=== PATIENT | female | born 1940 | race Caucasian/White ===

== ENCOUNTER 2019-08-27 01:33 | Day surgery (SDC) | payer MEDICARE, BC, SELFPAY ==
[2019-07-29 08:35] VITALS: BMI 27.8
--- NOTE | 2019-08-27 07:23 | WPDHPUPDATE1 ---
History and Physical Update Update Date/Time: 08/27/19 07:23 History and Physical has been reviewed, including an updated exam of the patient. There are NO changes in the patient's condition. Risks, benefits, and alternatives have been discussed and questions answered. Patient agrees to proceed with procedure.
[2019-08-27 10:15] VITALS: PULSE 91; TEMP 36.2; O2SAT 100
[2019-08-27] MEDS: LACTATED RINGERS 1,000 ML 30 ML IV CONT (10:15)
--- NOTE | 2019-08-27 10:15 | WPDANESEPPF ---
Anes - Initial Pre Proc Eval Procedure: Operation Date: 08/27/19 11:15 Proposed Procedures p Cystoscopy, Bladder Biopsy with Steroid Injection and Botox Injection - Yon Jones MD Date/Time: 08/27/19 10:15 Surgeon: Yon Jones MD Pre Op Diagnosis: Hunters ulcer, overactive bladder Patient Data Age: 78 Gender: F Height: 5 ft 7.5 in Weight: 81.8 kg Allergies Allergy/AdvReac Type Severity Reaction Status Date / Time azithromycin Allergy Severe HYPERTENSIO Verified 08/16/19 09:04 N levofloxacin Allergy Severe extremely Verified 08/16/19 09:04 high blood pressure which sent her to ER methylprednisolone Allergy Severe extremely Verified 08/16/19 09:04 high blood pressure which sends her to ER prednisone Allergy Severe HYPERTENSIO Verified 08/16/19 09:04 N atorvastatin Allergy Intermediate effected Unverified 08/16/19 09:04 eye sight muscle joints amlodipine Allergy Mild cramps Verified 08/16/19 09:04 doxycycline Allergy Unknown Rash Verified 08/16/19 09:04 nitrofurantoin Allergy Unknown Cough Verified 08/16/19 09:04 pregabalin Allergy Unknown Unknown Verified 08/16/19 09:04 Moyckfw-Jro-Ghi Reductase Allergy Unknown unknown Verified 08/16/19 09:04 Inhibitor sulfamethizole Allergy Unknown Unknown Verified 08/16/19 09:04 menthol AdvReac Unknown rash Verified 08/16/19 09:04 selenium sulfide AdvReac Unknown rash Verified 08/16/19 09:04 Home Medications Medication Instructions Recorded Confirmed Type clonidine 0.2 mg/24 hr weekly 1 patch TRANSDERM WEEKLY #1 each 07/01/19 08/16/19 Rx transdermal patch irbesartan 150 mg tablet 150 mg PO DAILY #1 tablet 07/01/19 08/16/19 Rx isosorbide mononitrate 30 mg 30 mg PO DAILY #1 tablet 07/01/19 08/16/19 Rx tablet,extended release 24 hr lorazepam 0.5 mg PO TID PRN 07/29/19 08/16/19 History hydrocodone 10 mg-chlorpheniramine 5 ml PO Q12H PRN 30 Days #337 ml 08/02/19 08/16/19 Rx 8 mg/5 mL oral susp extend.rel 12hr Patient hx anesthesia problems: none Family hx anesthesia problems: none PMFSH Past Medical History Medical History COPD (chronic obstructive pulmonary disease) Hypertension CELI (obstructive sleep apnea) Family History Family History Other Family history of premature coronary heart disease Social History Social History Smoking status: Never smoker Second hand tobacco smoke exposure: No Alcohol intake: never Anes - Eval Final PreProcedure Day of Procedure 08/27/19 10:15 Patient weight: overweight Heart: regular rate and rhythm Lungs: decreased breath sounds Airway: Mallampati scale class II Neurological: alert and oriented Last oral intake: >/= 8 hours ASA classification: III Emergent: no Anesthetic plan: proceed Anesthesia type and monitoring: general GIVS and standard monitoring Informed Consent: The patient's anesthetic plan and its attendant risks and benefits were discussed with the patient/family/POA. Questions were solicited and answers provided to the satisfaction of the patient/family/POA.
--- NOTE | 2019-08-27 11:08 | WPDHPUPDATE1 ---
History and Physical Update Update Date/Time: 08/27/19 11:08 History and Physical has been reviewed, including an updated exam of the patient. There are NO changes in the patient's condition. Risks, benefits, and alternatives have been discussed and questions answered. Patient agrees to proceed with procedure. Cystoscopy with bladder biopsy and injection of steroids as well as injection of Botox
[2019-08-27] MEDS: ERTAPENEM 1 GM/NS 50 ML 1 GM/50 ML BAG IVPB (11:13)
[2019-08-27] MEDS: LIDOCAINE HCL 2% GEL UROJET 10 ML PKG MUCOUS MEM (11:32)
[2019-08-27] MEDS: BOTULINUM TOXIN TYPE A (*SPLP) 100 UNITS VIAL 200 UNITS IM (11:33)
[2019-08-27] MEDS: BOTULINUM TOXIN TYPE A (*SPLP) 100 UNITS VIAL IM (11:34)
[2019-08-27] MEDS: TRIAMCINOLONE ACET INJ 40 MG/ML VIAL 200 MG IM (11:37)
[2019-08-27 11:44] VITALS: BP 138/81; PULSE 89; RESP 16; O2SAT 95
--- NOTE | 2019-08-27 11:55 | PM.PROC ---
Procedure Note - Detailed Date of procedure: 08/27/19 Pre-op diagnosis: Hunters ulcer, overactive bladder Hunner's ulcer Overactive bladder Post-op diagnosis: same Procedure performed: Cystoscopy with bladder biopsy and injection of steroid Injection of Botox 300 units. Description of procedure: After anesthesia was induced the patient was correctly identified and informed consent was obtained. They are placed in the dorsal lithotomy position. There prepped and draped in a sterile fashion. A time-out performed. I performed cystoscopy. There were areas of Hunner's ulceration inside the bladder. There were 3 areas in total. This was biopsied in generously fulgurated. I then injected Kenalog at a dose of 40 milligrams/mL. I injected 5 cc total. There was minimal bleeding from the injection sites. I then mixed 300 units of Botox in 30 cc preservative-free saline. I injected it throughout the bladder in the sub urothelial and muscular layer. Be increased from 200-300 units per patient request. The bladder was examined under low insufflation pressures and there was no active bleeding. The bladder was drained. The awakened and transferred to the PACU in stable condition. Implants: None Anesthesia: MAC Surgeon: Yon Jones MD Drains: No Packing: No Pathology: yes (Bladder biopsy) Complications: No immediate complications Condition: stable Disposition: PACU
[2019-08-27 12:14] VITALS: BP 130/91; PULSE 80; RESP 16; O2SAT 97
[2019-08-27 12:44] VITALS: BP 135/79; PULSE 86; RESP 14
== END 2019-08-27 12:53 | disposition home or self-care (01) ==
PROVIDERS: PCP Internal Medicine; Visit Provider Urology
PROC: 3E0K8GC Introduction of Other Therapeutic Substance into Genitourinary Tract, Via Natural or Artificial Opening Endoscopic (ICD-10-PCS; CPT 52287; principal; 2019-08-27 11:15)
DX: N30.10 Interstitial cystitis (chronic) without hematuria (principal); N32.81 Overactive bladder; I10 Essential (primary) hypertension; J44.9 Chronic obstructive pulmonary disease, unspecified; G47.33 Obstructive sleep apnea (adult) (pediatric); Z79.82 Long term (current) use of aspirin
CPT/HCPCS: 52204; 52283; 52287; 88305; A9270; J0131; J0585; J1335; J2704; J3010; J3301; J7120

== ENCOUNTER 2020-04-22 00:39 | Outpatient (CLI) | payer MEDICARE, BC, SELFPAY ==
[2020-04-22 17:48] LABS: SARS-CoV-2 RNA PCR Negative
== END 2020-04-22 00:40 | disposition home or self-care (01) ==
LOC: ANHCOVIDDT 00:40
PROVIDERS: PCP Internal Medicine; Visit Provider Orthopaedic Surgery
DX: Z01.812 Encounter for preprocedural laboratory examination (principal); Z20.828 Contact with and (suspected) exposure to other viral communicable diseases; D89.9 Disorder involving the immune mechanism, unspecified
CPT/HCPCS: 87635; C9803; U0003

== ENCOUNTER 2020-04-25 02:23 | Day surgery (SDC) | payer MEDICARE, BC, SELFPAY ==
[2020-04-17 14:18] VITALS: BMI 28.0
[2020-04-25] VITALS (9 sets, daily range): BP systolic 113–172; BP diastolic 49–77; PULSE 66–88; RESP 12–20; TEMP 36.3–36.7; O2SAT 95–99
[2020-04-25] MEDS: CELECOXIB 200 MG CAPSULE PO (06:53)
[2020-04-25] MEDS: ACETAMINOPHEN 500 MG TABLET 1000 MG PO (06:53)
[2020-04-25] MEDS: LACTATED RINGERS 1,000 ML 30 ML IV CONT ×2 (06:59→09:15)
--- NOTE | 2020-04-25 07:07 | WPDANESEPPF ---
Anes - Initial Pre Proc Eval Procedure: Operation Date: 04/25/20 07:30 Proposed Procedures p Right Rotator Cuff Repair With Distal Clavicle Excision - Luis Khan MD Date/Time: 04/25/20 07:07 Surgeon: Luis Khan MD Pre Op Diagnosis: Right Rotator Cuff Tear Patient Data Age: 79 Gender: F Height: 5 ft 7.5 in Weight: 82.55 kg Allergies Allergy/AdvReac Type Severity Reaction Status Date / Time azithromycin Allergy Severe HYPERTENSIO Verified 04/25/20 06:28 N levofloxacin Allergy Severe extremely Verified 04/25/20 06:28 high blood pressure which sent her to ER methylprednisolone Allergy Severe extremely Verified 04/25/20 06:28 high blood pressure which sends her to ER prednisone Allergy Severe HYPERTENSIO Verified 04/25/20 06:28 N atorvastatin Allergy Intermediate effected Verified 04/25/20 06:28 eye sight muscle joints amlodipine Allergy Mild cramps Verified 04/25/20 06:28 doxycycline Allergy Unknown Rash Verified 04/25/20 06:28 nitrofurantoin Allergy Unknown Cough Verified 04/25/20 06:28 pregabalin Allergy Unknown Unknown Verified 04/25/20 06:28 Wqzyokf-Cxb-Pvv Reductase Allergy Unknown LEG CRAMPS Verified 04/25/20 06:28 Inhibitor menthol AdvReac Unknown rash Verified 04/25/20 06:28 selenium sulfide AdvReac Unknown rash Verified 04/25/20 06:28 Home Medications Medication Instructions Recorded Confirmed Type clonidine 0.2 mg/24 hr weekly 1 patch TRANSDERM WEEKLY 90 Days 02/01/20 04/25/20 Rx transdermal patch #13 each irbesartan 150 mg tablet 150 mg PO DAILY 90 Days #90 tablet 02/01/20 04/25/20 Rx phenazopyridine 200 mg tablet 200 mg PO PRN PRN tablet 02/01/20 04/25/20 History chlorhexidine gluconate 4 % 1 applic TOPICAL ONCE #237 ml 02/28/20 04/25/20 Rx topical liquid isosorbide mononitrate 30 mg 30 mg PO DAILY #90 tablet 03/22/20 04/25/20 Rx tablet,extended release 24 hr lorazepam 0.5 mg tablet 0.25 mg PO BID 30 Days #30 tablet 04/15/20 04/25/20 Rx lactulose 10 gram/15 mL (15 mL) 30 ml PO PRN PRN #600 ml 04/18/20 04/25/20 Rx oral solution cyclobenzaprine 10 mg tablet 10 mg PO DAILY #90 tablet 04/19/20 04/25/20 Rx sulfamethoxazole 800 1 tablet PO DAILY 90 Days #90 04/19/20 04/25/20 Rx mg-trimethoprim 160 mg tablet tablet tramadol 50 mg tablet 50 mg PO Q6H PRN 30 Days #90 tablet 04/19/20 04/25/20 Rx Patient hx anesthesia problems: none Family hx anesthesia problems: none PMFSH Family History Family History Other Family history of premature coronary heart disease Social History Social History Smoking packs per day: 1 Smoking cigarettes per day: 20.0 Years smoked: 40 Smoking pack-years: 40.00 Smoking status: Former smoker Tobacco type: cigarettes Second hand tobacco smoke exposure: No Smoking end date: 07/28/98 Alcohol intake: never Living arrangements: with family Spiritual care concerns: No Anes - Eval Final PreProcedure Day of Procedure 04/25/20 07:07 Patient weight: overweight Heart: regular rate and rhythm Lungs: clear to auscultation Airway: Mallampati scale class II Neurological: alert and oriented Last oral intake: >/= 8 hours ASA classification: IV Emergent: no Anesthetic plan: proceed Anesthesia type and monitoring: general ETT and standard monitoring Informed Consent: The patient's anesthetic plan and its attendant risks and benefits were discussed with the patient/family/POA. Questions were solicited and answers provided to the satisfaction of the patient/family/POA.
--- NOTE | 2020-04-25 07:25 | WPDHPUPDATE1 ---
History and Physical Update Update Date/Time: 04/25/20 07:25 History and Physical has been reviewed, including an updated exam of the patient. There are NO changes in the patient's condition. Risks, benefits, and alternatives have been discussed and questions answered. Patient agrees to proceed with procedure.
[2020-04-25] MEDS: ceFAZolin 2 GM/D5W 50 ML 2 GM/50 ML BAG IVPB (07:33)
--- NOTE | 2020-04-25 09:00 | PM.PROC ---
Procedure Note - Detailed Date of procedure: 04/25/20 Pre-op diagnosis: Right Rotator Cuff Tear Post-op diagnosis: same Procedure performed: REPAIR OF RIGHT ROTATOR CUFF WITH DCE Description of procedure: THE PATIENT WAS TAKEN TO THE OPERATING ROOM AND THEN INTUBATED AND PLACED IN THE BEACH CHAIR POSITION. THE RIGHT UPPER EXTREMITY WAS PREPPED AND DRAPED IN THE NORMAL STERILE FASHION. AN INCISION WAS MADE IN BETWEEN THE SAVANNA-LATERAL ACROMION AND THE AC JOINT. THE FASCIA WAS IDENTIFIED. THE AC JOINT WAS PALPATED. AN INCISION WAS MADE OVER THE CAPSULE OF THE AC JOINT. THE AC JOINT WAS EXPOSED. THERE WAS SEVERE DJD. A DISTAL CLAVICLE EXCISION WAS PREFORMED REMOVING APPROXIMATELY 1 CM OF BONE FROM THE DISTAL CLAVICLE. AND AN OSTEOPHYTE WAS REMOVED FROM THE UNDERSURFACE OF THE CLAVICLE. THE WOUND WAS WASHED AND THE CAPSULE WAS CLOSED WITH 0 VICRYL SUTURE. NEXT A MINI OPEN INCISION WAS MADE THROUGH THE DELTOID MUSCLE EXPOSING THE SUBACROMIAL SPACE. A LIMITED ACROMIOPLASTY WAS PREFORMED. THE ROTATOR CUFF WAS IDENTIFIED. THERE WAS A FULL THICKNESS TEAR TO THE CUFF. THE GREATER TUBEROSITY WAS DEBRIDED TO BLEEDING BONE. 1 ATHREX 5.5 SUTURE ANCHOR WAS PLACED IN TO GOOD BONE AND HAD VERY GOOD BITE. BAHMAN-KURT TYPE REPAIRS WERE DONE TO THE ROTATOR CUFF AND THERE WAS GOOD APPROXIMATION TO THE GREATER TUBEROSITY. THE REPAIR WAS EXCELLENT. THERE WAS NO IMPINGEMENT ON THE REPAIR FROM THE ACROMION WITH RANGE OF MOTION. THE WOUND WAS IRRIGATED WITH COPIOUS AMOUNTS OF ANTIBIOTIC SOLUTION. THE DELTOID MUSCLE WAS REPAIRED WITH #2 FIBER WIRE AND 0 VICRYL SUTURE. THE SUBCUTANEOUS LAYER WAS APPROXIMATED WITH 2-0 VICRYL. THE SKIN WAS APPROXIMATED WITH 3-0 QUIL AND DERMABOND. STERILE DRESSING WAS APPLIED. PATIENT WAS EXTUBATED. Surgeon: Luis Khan MD
[2020-04-25] MEDS: ONDANSETRON INJ 4 MG/2 ML VIAL IV PUSH (09:27)
[2020-04-25] MEDS: fentaNYL CITRATE INJ (*CRX) 100 MCG/2 ML VIAL 25 MCG IV PUSH ×4 (09:32→10:02)
--- NOTE | 2020-04-25 09:39 | SUR.PHASEI ---
0915; PT MOANING AND C/O PAIN AND NAUSEA. PT HAS NOTED PAIN PATCH TO LT CHEST. PT HAS 2 TEGADERMS TO SKIN TEARS ON RT FOREARM. HOB ELEVATED 30 DEGREES. 0925; PT REMOVED O2 MASK FOR NAUSEA. NASAL CANNULA APPLIED.
--- NOTE | 2020-04-25 09:49 | SUR.PHASEI ---
0945; MONITOR SHOWS NSR WITH FREQUENT PAC'S. PT C/O PAIN AT 03/06. DR BLANC NOTIFIED.
--- NOTE | 2020-04-25 10:02 | SUR.PHASEI ---
0952; DR BLANC AT BEDSIDE. ORDERED DILAUDID PRN. LOOKING AT MONITOR. NSR, LESS PAC'S AT THIS TIME. PT STILL C/O NAUSEA.
--- NOTE | 2020-04-25 10:29 | SUR.PHASEI ---
DR CMKEON HERE, DISCUSSED PT'S SKIN TEARS, AND CHRONIC PAIN.
--- NOTE | 2020-04-25 10:34 | SUR.PHASEI ---
PT RESTING QUIETLY. STATES SHE IS READY TO SIT IN RECLINER AND HAVE A DRINK
[2020-04-25] MEDS: oxyCODONE HCL (*CRX) 2.5 MG TAB IR PO (11:24)
== END 2020-04-25 12:10 | disposition home or self-care (01) ==
PROVIDERS: PCP Internal Medicine; Visit Provider Orthopaedic Surgery
PROC: (CPT 23420; principal; 2020-04-25 07:30)
DX: M75.101 Unspecified rotator cuff tear or rupture of right shoulder, not specified as traumatic (principal); Z87.891 Personal history of nicotine dependence; M19.011 Primary osteoarthritis, right shoulder; J44.9 Chronic obstructive pulmonary disease, unspecified; I10 Essential (primary) hypertension; G47.33 Obstructive sleep apnea (adult) (pediatric)
CPT/HCPCS: 23420; 23120; A9270; C1713; J0690; J1100; J2250; J2370; J2405; J2704; J2710; J3010; J7120

== ENCOUNTER 2020-06-26 13:15 | Outpatient (CLI) | payer MEDICARE, BC, SELFPAY | END 2020-06-26 13:16 | disposition home or self-care (01) | PROVIDERS: PCP Internal Medicine; Visit Provider Urology | DX: Z01.818 Encounter for other preprocedural examination (principal); N32.81 Overactive bladder | CPT/HCPCS: 87077; 87086; 87088; 87186 ==

== ENCOUNTER 2020-06-30 02:12 | Outpatient (CLI) | payer MEDICARE, BC, SELFPAY ==
[2020-06-30 19:10] LABS: SARS-CoV-2 RNA PCR Negative
== END 2020-06-30 02:13 | disposition home or self-care (01) ==
LOC: ANHCOVIDDT 02:12
PROVIDERS: PCP Internal Medicine; Visit Provider Urology
DX: Z01.812 Encounter for preprocedural laboratory examination (principal); Z20.828 Contact with and (suspected) exposure to other viral communicable diseases
CPT/HCPCS: 87635; C9803; U0003

== ENCOUNTER 2020-07-03 00:43 | Day surgery (SDC) | payer MEDICARE, BC, SELFPAY ==
[2020-06-21 13:21] VITALS: BMI 28.6
--- NOTE | 2020-06-23 09:47 | PM.IMHP ---
H&P: HPI History of Present Illness Date/Time: 06/23/20 09:47 Chief complaint: Over active Bladder Narrative: Estelle Joseph is a 79 year old female Hunners ulcers and OAB Review of Systems Review of Systems: All systems reviewed & are unremarkable except as noted in HPI and below PMFSH Past Medical History Medical History (Updated 06/23/20 @ 09:50 by Yon Jones MD) COPD (chronic obstructive pulmonary disease) Hypertension CELI (obstructive sleep apnea) Tear of right supraspinatus tendon Family History Family History Other Family history of premature coronary heart disease Social History Social History Smoking packs per day: 1 Smoking cigarettes per day: 20.0 Years smoked: 40 Smoking pack-years: 40.00 Smoking status: Former smoker Tobacco type: cigarettes Second hand tobacco smoke exposure: No Smoking end date: 07/28/98 Alcohol intake: never Spiritual care concerns: No Meds Home Medications and Allergies Home Medications Medication Instructions Recorded Confirmed Type clonidine 0.2 mg/24 hr weekly 1 patch TRANSDERM WEEKLY 90 Days 02/01/20 06/21/20 Rx transdermal patch #13 each irbesartan 150 mg tablet 150 mg PO DAILY 90 Days #90 tablet 02/01/20 06/21/20 Rx isosorbide mononitrate 30 mg 30 mg PO DAILY #90 tablet 03/22/20 06/21/20 Rx tablet,extended release 24 hr lorazepam 0.5 mg tablet 0.25 mg PO BID 30 Days #30 tablet 04/15/20 06/21/20 Rx cyclobenzaprine 10 mg tablet 10 mg PO DAILY #90 tablet 04/19/20 06/21/20 Rx tramadol 50 mg tablet 50 mg PO Q6H PRN 30 Days #90 tablet 04/19/20 06/21/20 Rx elderberry fruit [Elderberry] 400 mg PO QAM 06/21/20 06/21/20 History melatonin 10 mg PO HS PRN 06/21/20 06/21/20 History turmeric 400 mg PO QAM 06/21/20 06/21/20 History Allergies Allergy/AdvReac Type Severity Reaction Status Date / Time azithromycin Allergy Severe HYPERTENSIO Verified 06/21/20 13:12 N levofloxacin Allergy Severe extremely Verified 06/21/20 13:12 high blood pressure which sent her to ER methylprednisolone Allergy Severe extremely Verified 06/21/20 13:12 high blood pressure which sends her to ER prednisone Allergy Severe HYPERTENSIO Verified 06/21/20 13:12 N atorvastatin Allergy Intermediate effected Verified 06/21/20 13:12 eye sight muscle joints amlodipine Allergy Mild cramps Verified 06/21/20 13:12 doxycycline Allergy Unknown Rash Verified 06/21/20 13:12 nitrofurantoin Allergy Unknown Cough Verified 06/21/20 13:12 pregabalin Allergy Unknown Unknown Verified 06/21/20 13:12 Hofvyzu-Yjl-Vgq Reductase Allergy Unknown LEG CRAMPS Verified 06/21/20 13:12 Inhibitor menthol AdvReac Unknown rash Verified 06/21/20 13:12 selenium sulfide AdvReac Unknown rash Verified 06/21/20 13:12 Exam Const: General: cooperative HENMT: Head: normal to inspection Resp: Effort & Inspection: normal respiratory effort and able to speak in complete sentences GI: Inspection: normal to inspection Back/Spine/Pelvis: Back: no CVA tenderness Skin: General skin exam: normal color Assessment and Plan Assessment and plan (1) 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
--- NOTE | 2020-07-03 07:15 | WPDHPUPDATE1 ---
History and Physical Update Update Date/Time: 07/03/20 07:15 History and Physical has been reviewed, including an updated exam of the patient. There are NO changes in the patient's condition. Risks, benefits, and alternatives have been discussed and questions answered. Patient agrees to proceed with procedure.
[2020-07-03 10:52] VITALS: BP 147/82; PULSE 82; RESP 20; TEMP 36.7; O2SAT 96
[2020-07-03] MEDS: LACTATED RINGERS 1,000 ML 30 ML IV CONT (11:25)
--- NOTE | 2020-07-03 11:55 | WPDANESEPPF ---
Anes - Initial Pre Proc Eval Procedure: Operation Date: 07/03/20 13:00 Proposed Procedures p Cystoscopy, Botox And Steroid Injection - Yon Jones MD Date/Time: 07/03/20 11:55 Surgeon: Yon Jones MD Pre Op Diagnosis: Over active Bladder Patient Data Age: 79 Gender: F Height: 5 ft 7 in Weight: 84 kg Last Vital Signs Temp 98.1 F 07/03/20 10:52 Pulse 82 07/03/20 10:52 Resp 20 07/03/20 10:52 BP 147/82 H 07/03/20 10:52 Pulse Ox 96 07/03/20 10:52 Allergies Allergy/AdvReac Type Severity Reaction Status Date / Time azithromycin Allergy Severe HYPERTENSIO Verified 06/21/20 13:12 N levofloxacin Allergy Severe extremely Verified 06/21/20 13:12 high blood pressure which sent her to ER methylprednisolone Allergy Severe extremely Verified 06/21/20 13:12 high blood pressure which sends her to ER prednisone Allergy Severe HYPERTENSIO Verified 06/21/20 13:12 N atorvastatin Allergy Intermediate effected Verified 06/21/20 13:12 eye sight muscle joints amlodipine Allergy Mild cramps Verified 06/21/20 13:12 doxycycline Allergy Mild Rash Verified 07/03/20 11:00 nitrofurantoin Allergy Mild Cough Verified 07/03/20 11:00 pregabalin Allergy Mild Unknown Verified 07/03/20 11:00 Myhypxq-Pyg-Aet Reductase Allergy Mild LEG CRAMPS Verified 07/03/20 11:00 Inhibitor selenium sulfide AdvReac Mild rash Verified 07/03/20 11:00 Home Medications Medication Instructions Recorded Confirmed Type clonidine 0.2 mg/24 hr weekly 1 patch TRANSDERM WEEKLY 90 Days 02/01/20 07/03/20 Rx transdermal patch #13 each irbesartan 150 mg tablet 150 mg PO DAILY 90 Days #90 tablet 02/01/20 07/03/20 Rx isosorbide mononitrate 30 mg 30 mg PO DAILY #90 tablet 03/22/20 07/03/20 Rx tablet,extended release 24 hr lorazepam 0.5 mg tablet 0.25 mg PO BID 30 Days #30 tablet 04/15/20 07/03/20 Rx cyclobenzaprine 10 mg tablet 10 mg PO DAILY #90 tablet 04/19/20 07/03/20 Rx tramadol 50 mg tablet 50 mg PO Q6H PRN 30 Days #90 tablet 04/19/20 07/03/20 Rx elderberry fruit [Elderberry] 400 mg PO QAM 06/21/20 07/03/20 History melatonin 10 mg PO HS PRN 06/21/20 07/03/20 History turmeric 400 mg PO QAM 06/21/20 07/03/20 History Patient hx anesthesia problems: none Family hx anesthesia problems: none PMFSH Past Medical History Medical History (Updated 06/23/20 @ 09:50 by Yon Jones MD) COPD (chronic obstructive pulmonary disease) Hypertension CELI (obstructive sleep apnea) Tear of right supraspinatus tendon Family History Family History Other Family history of premature coronary heart disease Social History Social History Smoking packs per day: 1 Smoking cigarettes per day: 20.0 Years smoked: 40 Smoking pack-years: 40.00 Smoking status: Former smoker Tobacco type: cigarettes Second hand tobacco smoke exposure: No Smoking end date: 07/28/98 Alcohol intake: never Living arrangements: with family Spiritual care concerns: No Anes - Eval Final PreProcedure Day of Procedure 07/03/20 11:55 Patient weight: overweight Heart: regular rate and rhythm Lungs: clear to auscultation Airway: Mallampati scale class III Neurological: alert and oriented Last oral intake: >/= 8 hours ASA classification: III Emergent: no Anesthetic plan: proceed Anesthesia type and monitoring: general GIVS and standard monitoring Informed Consent: The patient's anesthetic plan and its attendant risks and benefits were discussed with the patient/family/POA. Questions were solicited and answers provided to the satisfaction of the patient/family/POA.
[2020-07-03] MEDS: ERTAPENEM 1 GM/NS 50 ML 1 GM/50 ML BAG IVPB (13:05)
[2020-07-03] MEDS: BOTULINUM TOXIN TYPE A (*SPLP) 100 UNITS VIAL XX (13:23)
[2020-07-03] MEDS: TRIAMCINOLONE ACET INJ 40 MG/ML VIAL 200 MG XX (13:26)
--- NOTE | 2020-07-03 13:34 | PM.PROC ---
Procedure Note - Detailed Date of procedure: 07/03/20 Pre-op diagnosis: Over active Bladder Overactive bladder, Hunner ulcer Post-op diagnosis: same Procedure performed: Cystoscopy with bladder biopsy, steroid injection, injection of Botox 200 units. Description of procedure: We did this procedure every 6 months. She has overactive bladder as well as Hunner's ulcers. She self catheterizes she agrees to proceed. She was given a dose of ertapenem preop for asymptomatic bacteriuria. She was correctly identified and informed consent obtained. She from the operating room. She was given mac anesthesia. I performed cystoscopy. She had a small capacity bladder. It was trabeculated. Ureters open consistent with reflux. There was how his ulcerations on the posterior wall. I biopsied 1 of these areas and fulgurated the lesion. I then injected Kenalog. I used 5 cc of 40 milligrams/mL. I then mixed 3 units of Botox in 30 cc preservative-free saline. I injected throughout the bladder in the sub urothelial layer and muscular layer. Additional cc was used to clear the needle. Her bladder is examined under low insufflation pressures. There is no active bleeding. The bladder was drained. She is awakened and transferred to the PACU in stable condition. Implants: None Anesthesia: MAC Surgeon: Yon Jones MD Estimated blood loss (mL): 2 Drains: No Packing: No Pathology: yes Complications: No immediate complications Condition: stable Disposition: PACU
[2020-07-03 13:35] VITALS: BP 110/56; PULSE 81; RESP 15; O2SAT 95
[2020-07-03] MEDS: fentaNYL CITRATE INJ (*CRX) 100 MCG/2 ML VIAL 25 MCG IV PUSH ×2 (13:56→14:02)
[2020-07-03 14:30] VITALS: BP 174/74; PULSE 78; RESP 14
[2020-07-03] MEDS: oxyCODONE HCL (*CRX) 2.5 MG TAB IR PO (14:31)
--- NOTE | 2020-07-03 14:32 | SUR.PHASEII ---
1420 assisted to bathroom per wheelchair. pt self cathed for clear jasmyn urine. less pain and burning.
[2020-07-03 14:46] VITALS: BP 159/74; PULSE 83; RESP 14
== END 2020-07-03 14:55 | disposition home or self-care (01) ==
PROVIDERS: PCP Internal Medicine; Visit Provider Urology
PROC: 3E0K8GC Introduction of Other Therapeutic Substance into Genitourinary Tract, Via Natural or Artificial Opening Endoscopic (ICD-10-PCS; CPT 52287; principal; 2020-07-03 13:00)
DX: N32.81 Overactive bladder (principal); N30.10 Interstitial cystitis (chronic) without hematuria; J44.9 Chronic obstructive pulmonary disease, unspecified; I10 Essential (primary) hypertension; G47.33 Obstructive sleep apnea (adult) (pediatric); Z87.891 Personal history of nicotine dependence
CPT/HCPCS: 52204; 52283; 52287; 88305; A9270; J0585; J1335; J2405; J2704; J3010; J3301; J7120

== ENCOUNTER → 2020-10-21 01:56 | Outpatient (CLI) | payer MEDICARE, BC, SELFPAY ==
[2020-10-21 20:22] LABS: SARS-CoV-2 RNA PCR Negative
== END ==
PROVIDERS: PCP Internal Medicine; Visit Provider Internal Medicine Gastroenterology
DX: Z01.812 Encounter for preprocedural laboratory examination (principal); Z20.822 Contact with and (suspected) exposure to COVID-19
CPT/HCPCS: C9803; U0003; U0005

== ENCOUNTER 2020-10-24 01:20 | Day surgery (SDC) | payer MEDICARE, BC, SELFPAY ==
[2020-10-10 14:33] VITALS: BMI 29.0
[2020-10-24 08:59] VITALS: BP 174/92; PULSE 88; RESP 18; TEMP 36.1; O2SAT 95
[2020-10-24] MEDS: LACTATED RINGERS 1,000 ML 150 ML IV CONT (09:09)
--- NOTE | 2020-10-24 09:23 | WPDANESEPPF ---
Anes - Initial Pre Proc Eval Procedure: Operation Date: 10/24/20 10:15 Proposed Procedures p Screening Colonoscopy - Larry Junior MD Date/Time: 10/24/20 09:23 Surgeon: Larry Junior MD Pre Op Diagnosis: Neoplasm Screening Patient Data Age: 79 Gender: F Height: 5 ft 7 in Weight: 83.3 kg Last Vital Signs Temp 36.1 C L 10/24/20 08:59 Pulse 88 10/24/20 08:59 Resp 18 10/24/20 08:59 BP 174/92 H 10/24/20 08:59 Pulse Ox 95 10/24/20 08:59 Allergies Allergy/AdvReac Type Severity Reaction Status Date / Time azithromycin Allergy Severe HYPERTENSIO Verified 10/24/20 08:57 N levofloxacin Allergy Severe extremely Verified 10/24/20 08:57 high blood pressure which sent her to ER methylprednisolone Allergy Severe extremely Verified 10/24/20 08:57 high blood pressure which sends her to ER prednisone Allergy Severe HYPERTENSIO Verified 10/24/20 08:57 N atorvastatin Allergy Intermediate effected Verified 10/24/20 08:57 eye sight muscle joints amlodipine Allergy Mild cramps Verified 10/24/20 08:57 doxycycline Allergy Mild Rash Verified 10/24/20 08:57 nitrofurantoin Allergy Mild Cough Verified 10/24/20 08:57 pregabalin Allergy Mild Unknown Verified 10/24/20 08:57 Halebyp-Ymd-Zuz Reductase Allergy Mild LEG CRAMPS Verified 10/24/20 08:57 Inhibitor selenium sulfide AdvReac Mild rash Verified 10/24/20 08:57 Home Medications Medication Instructions Recorded Confirmed Type cyclobenzaprine 10 mg tablet 10 mg PO DAILY #90 tablet 04/19/20 10/24/20 Rx elderberry fruit 400 mg PO QAM 06/21/20 10/24/20 History melatonin 10 mg PO HS PRN 06/21/20 10/24/20 History turmeric 400 mg PO QAM 06/21/20 10/24/20 History irbesartan 150 mg tablet See Rx Instructions .ROUTE 07/12/20 10/24/20 Rx .COMPLEX #90 tablet clonidine 0.2 mg/24 hr weekly 1 patch TRANSDERM WEEKLY 90 Days 08/08/20 10/24/20 Rx transdermal patch #13 each lorazepam 0.5 mg tablet 0.25 mg PO BID 30 Days #30 tablet 08/08/20 10/24/20 Rx isosorbide mononitrate 30 mg 30 mg PO DAILY #90 tablet 09/21/20 10/24/20 Rx tablet,extended release 24 hr polyethylene glycol 3350 17 gram 17 g PO DAILY 90 Days #100 ea 10/03/20 10/24/20 Rx oral powder packet Patient hx anesthesia problems: none Family hx anesthesia problems: none PMFSH Past Medical History Medical History COPD (chronic obstructive pulmonary disease) Hypertension CELI (obstructive sleep apnea) Tear of right supraspinatus tendon Family History Family History Other Family history of premature coronary heart disease Social History Social History Smoking packs per day: 1 Smoking cigarettes per day: 20.0 Years smoked: 40 Smoking pack-years: 40.00 Smoking status: Former smoker Tobacco type: cigarettes Second hand tobacco smoke exposure: No Smoking end date: 07/28/90 Alcohol intake: never Substance use type: does not use Living arrangements: with family Spiritual care concerns: No Anes - Eval Final PreProcedure Day of Procedure 10/24/20 09:23 Patient weight: overweight Heart: regular rate and rhythm Lungs: decreased breath sounds Airway: Mallampati scale class II Neurological: other (alert) Last oral intake: >/= 8 hours ASA classification: III Emergent: no Anesthetic plan: proceed Anesthesia type and monitoring: general GIVS and standard monitoring Informed Consent: The patient's anesthetic plan and its attendant risks and benefits were discussed with the patient/family/POA. Questions were solicited and answers provided to the satisfaction of the patient/family/POA.
--- NOTE | 2020-10-24 09:52 | PM.HPGS ---
History of Present Illness History of Present Illness Consent: Risks, benefits, and alternatives have been discussed and questions answered. Patient agrees to proceed with procedure. Chief complaint: Neoplasm Screening Narrative: Estelle Joseph is a 79 year old female Here for colon cancer screening. She has had a change in bowel habits with severe constipation lately. She uses MiraLax and other sjzk-nfa-zifcayj medications to help get her bowels moving Review of Systems Review of Systems: All systems reviewed & are unremarkable except as noted in HPI and below PMFSH Past Medical History Medical History (Updated 10/24/20 @ 09:59 by Larry Junior MD) COPD (chronic obstructive pulmonary disease) Hypertension CELI (obstructive sleep apnea) Tear of right supraspinatus tendon Family History Family History Other Family history of premature coronary heart disease Social History Social History Smoking packs per day: 1 Smoking cigarettes per day: 20.0 Years smoked: 40 Smoking pack-years: 40.00 Smoking status: Former smoker Tobacco type: cigarettes Second hand tobacco smoke exposure: No Smoking end date: 07/28/90 Alcohol intake: never Substance use type: does not use Living arrangements: with family Spiritual care concerns: No Meds Home Medications and Allergies Home Medications Medication Instructions Recorded Confirmed Type cyclobenzaprine 10 mg tablet 10 mg PO DAILY #90 tablet 04/19/20 10/24/20 Rx elderberry fruit 400 mg PO QAM 06/21/20 10/24/20 History melatonin 10 mg PO HS PRN 06/21/20 10/24/20 History turmeric 400 mg PO QAM 06/21/20 10/24/20 History irbesartan 150 mg tablet See Rx Instructions .ROUTE 07/12/20 10/24/20 Rx .COMPLEX #90 tablet clonidine 0.2 mg/24 hr weekly 1 patch TRANSDERM WEEKLY 90 Days 08/08/20 10/24/20 Rx transdermal patch #13 each lorazepam 0.5 mg tablet 0.25 mg PO BID 30 Days #30 tablet 08/08/20 10/24/20 Rx isosorbide mononitrate 30 mg 30 mg PO DAILY #90 tablet 09/21/20 10/24/20 Rx tablet,extended release 24 hr polyethylene glycol 3350 17 gram 17 g PO DAILY 90 Days #100 ea 10/03/20 10/24/20 Rx oral powder packet Allergies Allergy/AdvReac Type Severity Reaction Status Date / Time azithromycin Allergy Severe HYPERTENSIO Verified 10/24/20 08:57 N levofloxacin Allergy Severe extremely Verified 10/24/20 08:57 high blood pressure which sent her to ER methylprednisolone Allergy Severe extremely Verified 10/24/20 08:57 high blood pressure which sends her to ER prednisone Allergy Severe HYPERTENSIO Verified 10/24/20 08:57 N atorvastatin Allergy Intermediate effected Verified 10/24/20 08:57 eye sight muscle joints amlodipine Allergy Mild cramps Verified 10/24/20 08:57 doxycycline Allergy Mild Rash Verified 10/24/20 08:57 nitrofurantoin Allergy Mild Cough Verified 10/24/20 08:57 pregabalin Allergy Mild Unknown Verified 10/24/20 08:57 Sakhrba-Dkz-Bhc Reductase Allergy Mild LEG CRAMPS Verified 10/24/20 08:57 Inhibitor selenium sulfide AdvReac Mild rash Verified 10/24/20 08:57 Vital Signs Vital Signs - 24 hr 10/24/20 08:59 Temperature 36.1 C L Pulse Rate 88 Respiratory Rate 18 Blood Pressure 174/92 H Pulse Oximetry 95 Exam Resp: Auscultation: clear to auscultation bilaterally Cardio: Rate: regular rate Rhythm: regular rhythm GI: GI Palp: Yes Soft to palpation and No Tenderness to palpation present (GI) Assessment and Plan Assessment and plan (1) Colon cancer screening: Code(s): Z12.11 - Encounter for screening for malignant neoplasm of colon Status: Acute Assessment and Plan: Colonoscopy with possible biopsy or polypectomy or cautery or injection of substances.
[2020-10-24 10:29] VITALS: BP 143/66; PULSE 72; RESP 18; O2SAT 96
[2020-10-24 10:39] VITALS: BP 152/70; PULSE 74; RESP 20; O2SAT 95
[2020-10-24 10:49] VITALS: BP 158/68; PULSE 76; RESP 20; O2SAT 96
== END 2020-10-24 11:06 | disposition home or self-care (01) ==
PROVIDERS: PCP Internal Medicine; Visit Provider Internal Medicine Gastroenterology
PROC: 0DJD8ZZ Inspection of Lower Intestinal Tract, Via Natural or Artificial Opening Endoscopic (ICD-10-PCS; CPT 45378; principal; 2020-10-24 10:15)
DX: Z12.11 Encounter for screening for malignant neoplasm of colon (principal); K59.00 Constipation, unspecified; K57.30 Diverticulosis of large intestine without perforation or abscess without bleeding; J44.9 Chronic obstructive pulmonary disease, unspecified; I10 Essential (primary) hypertension; G47.33 Obstructive sleep apnea (adult) (pediatric); Z82.49 Family history of ischemic heart disease and other diseases of the circulatory system; Z87.891 Personal history of nicotine dependence
CPT/HCPCS: G0121; J2704; J7120

== ENCOUNTER 2021-04-04 10:51 | Emergency (ER) | payer MEDICARE, BC, SELFPAY ==
--- NOTE | ~2021-04-04 | XR_ITS ---
EXAMINATION: XR chest 1V portable INDICATION: Transient alteration of awareness TECHNIQUE: Portable AP chest at 1054 hours COMPARISON: 05/11/2018 FINDINGS: Calcified pulmonary nodules are consistent with old granulomatous disease. The lungs are fr ee of acute opacities. There is no pleural effusion or pneumothorax. There appears to be a moderate-s ized hiatal hernia. Pankaj and screw fixation of the proximal left humerus is again noted. IMPRESSION: 1. No acute cardiopulmonary abnormality. Reviewed, dictated and finalized at location B.
--- NOTE | 2021-04-04 10:56 | ECG_ITS ---
Measurements Intervals [place] Rate: 82 P: 59 CA: 208 QRS: 24 QRSD: 73 T: 72 QT: 352 QTc: 412 Interpretive Statements SINUS RHYTHM WITH FIRST DEGREE AV BLOCK NONSPECIFIC ST & T-WAVE ABNORMALITY- HIGH LATERAL LEADS BASELINE ARTIFACT- I, II, III, AVR, AVL, AVF ABNORMAL ECG Electronically Signed On 04-05-2021 11:06:17 CDT by Ld Henriquez D.O.
--- NOTE | 2021-04-04 10:59 | ED.DIZZY ---
HPI - Dizziness General Chief Complaint: Syncope Stated Complaint: dizzy, syncopal Time Seen by Provider: 04/04/21 10:59 Source: patient, family and EMS Mode of arrival: ambulatory Limitations: no limitations History of Present Illness HPI Narrative: The patient is a 80 yo female with a history of HTN,HLD, interstitial cystitis, who presents for evaluation of a syncopal event. Patient reportedly was at a this morning when she passed out. Patient states that she had been repeatedly standing up and sitting down during the service when she began to feel faint. She felt warm and slightly lightheaded before passing out. Patient does think she had a short loss of consciousness although she can recall numerous voices talking to her. She remembers the ambulance crew arriving. No shaking activity. No tongue lacerations or urinary incontinence. Patient denies any chest pain, palpitations, shortness of breath prior to this. Patient states that she felt blah this morning but denies any acute illness. Denies fever, chills, cough, shortness of breath. No history of Covid. She is vaccinated. No recent car or air travel. No history of coagulopathy. No previous history of PE. No leg swelling or calf pain. No hemoptysis. Patient currently feels well denies any acute complaints. She states she did eat a donut and had some coffee this morning, states that is a small breakfast for her and usually she tries to eat a bit more. Patient also states she recently had some outpatient blood work which was notable for mildly high glucose of 126 as well as a elevated potassium. Related Data Home Medications Medication Instructions Recorded Confirmed elderberry fruit 400 mg PO QAM 06/21/20 10/24/20 melatonin 10 mg PO HS PRN 06/21/20 10/24/20 turmeric 400 mg PO QAM 06/21/20 10/24/20 Allergies Allergy/AdvReac Type Severity Reaction Status Date / Time azithromycin Allergy Severe HYPERTENSIO Verified 04/04/21 11:11 N levofloxacin Allergy Severe extremely Verified 04/04/21 11:11 high blood pressure which sent her to ER methylprednisolone Allergy Severe extremely Verified 04/04/21 11:11 high blood pressure which sends her to ER prednisone Allergy Severe HYPERTENSIO Verified 04/04/21 11:11 N atorvastatin Allergy Intermediate effected Verified 04/04/21 11:11 eye sight muscle joints amlodipine Allergy Mild cramps Verified 04/04/21 11:11 doxycycline Allergy Mild Rash Verified 04/04/21 11:11 nitrofurantoin Allergy Mild Cough Verified 04/04/21 11:11 pregabalin Allergy Mild Unknown Verified 04/04/21 11:11 Lffiden-Idn-Vft Reductase Allergy Mild LEG CRAMPS Verified 04/04/21 11:11 Inhibitor selenium sulfide AdvReac Mild rash Verified 04/04/21 11:11 Review of Systems Review of Systems: CONSTITUTIONAL: Denies fever, chills, or sweats. EYES: Denies visual changes, redness, or discharge. ENT: Denies rhinorrhea, congestion, sore throat, or otalgia. CARDIOVASCULAR: Denies chest pain, palpitations, or edema. RESPIRATORY: Denies cough or dyspnea. GASTROINTESTINAL: Denies abdominal pain, nausea, vomiting, or diarrhea. GENITOURINARY: Denies dysuria or hematuria. SKIN: Denies rash or itching. MUSCULOSKELETAL: Denies back pain, joint pain, or myalgia. NEUROLOGIC: Denies headache, numbness, or weakness. [facility] Past Medical History Medical History (Updated 04/04/21 @ 16:28 by Cathy Moreno MD) COPD (chronic obstructive pulmonary disease) Hypertension CELI (obstructive sleep apnea) Tear of right supraspinatus tendon Family History Family History Other Family history of premature coronary heart disease Social History Social History Smoking packs per day: 1 Smoking cigarettes per day: 20.0 Years smoked: 40 Smoking pack-years: 40.00 Smoking status: Former
[2021-04-04 11:05] VITALS: BP 156/74; PULSE 96; RESP 14; TEMP 36.8; O2SAT 97
[2021-04-04 11:50] LABS: Glucose Point of Care 144 mg/dl (65-105)
[2021-04-04 12:07] LABS: Basophils Absolute Auto 0.1 K/mm3 (0.0-0.1); Basophils Percent Auto 0.7 % (0.2-1.2); Eosinophils Absolute Auto 0.1 K/mm3 (0-0.3); Eosinophils Percent Auto 0.7 % (0-4.4); Hematocrit 40.6 % (37.0-47.0); Hemoglobin 11.9 g/dL (12.0-15.0); Immature Granulocyte Absolute 0.02 K/mm3 (0.00-0.031); Immature Granulocyte Percent A 0.2 % (0-0.5); Lymphocytes Percent Auto 9.2 % (18.3-44.2); Mean Corpuscular HGB Conc 29.3 g/dl (32-36); Mean Corpuscular Hemoglobin 24.8 pg (26-34); Mean Corpuscular Volume 84.6 fl (80-100); Mean Platelet Volume 9.9 fl (7.4-10.4); Monocytes Absolute Auto 0.7 K/mm3 (0.1-0.6); Neutrophils Percent Auto 81.2 % (45.5-73.1); Platelet Count Result 308 k/mm3 (150-375); Red Cell Distribution Width 15.2 % (11.5-14.5); White Blood Count 8.7 K/mm3 (4.5-10.0)
[2021-04-04] MEDS: SODIUM CHLORIDE 0.9% IV 1,000 ML 999 ML IV CONT (12:17)
[2021-04-04] MEDS: ONDANSETRON INJ 4 MG/2 ML VIAL IV PUSH (12:17)
[2021-04-04 12:25] LABS: Alanine Aminotransferase 22 U/L (4-35); Albumin Level 4.2 g/dL (3.5-5.1); Alkaline Phosphatase 97 U/L (38-126); Anion Gap 7 mmol/L (8-16); Aspartate Amino Transferase 32 U/L (14-36); Bilirubin,Total 0.4 mg/dL (0.2-1.3); Blood Urea Nitrogen 31 mg/dL (7-17); Calcium 9.1 mg/dL (8.4-10.2); Carbon Dioxide 23 mmol/L (22-30); Chloride 107 mmol/L (98-107); Estimated CRCL calculation 33 ml/min; Estimated Glomerular Filt Rate 39; Glucose 130 mg/dL (65-110); Potassium 5.1 mmol/L (3.4-5.0); Sodium 137 mmol/L (137-145)
[2021-04-04 12:37] LABS: Troponin I < 0.012 ng/mL (0.000-0.034)
[2021-04-04 13:30] LABS: Add Urine Microscopic? YES; Appearance Urine Cloudy (Clear); Bacteria Urine 2+ /hpf; Bilirubin Urine Negative (Negative); Blood Urine 2+ (Negative); Color Urine Yellow (Yellow); Glucose Urine UA Negative (Negative); Ketones Urine Negative (Negative); Leukocyte Esterase Ur 3+ LEU/UL (Negative); Nitrate Urine Positive (Negative); Protein Urine 2+ mg/dL (Negative); RBC Urine >75 /hpf (0-2); Specific Grav Ur 1.015 (1.001-1.035); Squamous Epithelial Cell Urine Rare /hpf (Few); Urobilinogen Urine Negative mg/dL (<2.0); WBC Urine >75 /hpf
[2021-04-04 15:00] VITALS: BP 152/84; PULSE 72; RESP 18; O2SAT 98
[2021-04-04 16:08] LABS: Troponin I < 0.012 ng/mL (0.000-0.034)
== END 2021-04-04 16:42 | disposition home or self-care (01) ==
PROVIDERS: Emergency Provider Emergency Medicine
DX: R55 Syncope and collapse (principal); N39.0 Urinary tract infection, site not specified; J44.9 Chronic obstructive pulmonary disease, unspecified; I10 Essential (primary) hypertension; G47.33 Obstructive sleep apnea (adult) (pediatric); Z87.891 Personal history of nicotine dependence; I44.0 Atrioventricular block, first degree; R94.31 Abnormal electrocardiogram [ECG] [EKG]
CPT/HCPCS: 36415; 71045; 80053; 81001; 82948; 84484; 85025; 87077; 87086; 87088; 87186; 93005; 96361; 96365; 96375; 99284; J0696; J2405; J7030

== ENCOUNTER 2021-08-28 10:08 | Outpatient (CLI) | payer MEDICARE, BC, SELFPAY | END 2021-08-28 10:09 | disposition home or self-care (01) | PROVIDERS: Visit Provider Urology | DX: Z01.818 Encounter for other preprocedural examination (principal); N30.10 Interstitial cystitis (chronic) without hematuria | CPT/HCPCS: 87086 ==

== ENCOUNTER 2021-09-07 01:15 | Day surgery (SDC) | payer MEDICARE, BC, SELFPAY ==
[2021-08-27 10:21] VITALS: BMI 29.2
--- NOTE | 2021-08-27 10:24 | PC.NURSE ---
Report to the Outpatient Waiting Room, entrance under the green pavilion located off [facility], at time _0900_ on date _09/07/21__. OR Time: _1100_. - You and your visitor will be asked a series of questions to screen for COVID 19 for your protection. - A mask is required within the hospital. - NO visitors are allowed at this time. Preoperative COVID Testing Requirements: No COVID Test needed if: (proof is required; if not received patient will have Rapid Test prior to entry) - Patient has received COVID Vaccine at least 14 days prior to procedure date or - Patient has positive COVID test result within last 90 days of surgery date. COVID Test needed if above criteria is not met If not COVID vaccinated a COVID test must be conducted within 72 hours of surgery and patient is asked to isolate self from time of testing until procedure. You will go to the [facility] for your COVID testing. The [facility] is located at the corner of [address] [facility]. You will only be called if COVID results are positive and your surgeon may reschedule your elective surgery date. Patients may have clear liquids (water, carbonated beverages, clear teas, apple juice) until 3 hours prior to surgery with a maximum of 20 ounces. (0800 AM) - No food from midnight until time of surgery - Infants may have breast milk until 4 hours before surgery, infant formula 6 hours prior to surgery. - Children will be allowed to drink immediately following surgery. If applicable, please bring a bottle or sippy cup to assist with drinking. Juice, water, soda, and popsicles are readily available. For infants on formula, please bring formula the day of surgery. Pacifiers are allowed. Take the following medications with a SIP of water the morning of surgery: _ISOSORBIDE__ Medications to discontinue per ANESTHESIA - _ELDERBERRY GUMMY, TURMERIC_ Date to take last dose_09/03/21___ Please no make-up, nail rwandan, hairspray, perfume, deodorant, or body powder the day of surgery. No jewelry (including any body piercings) or valuables the day of surgery, leave them at home. Please take a shower or bath the night before, or the morning of, surgery with an antibacterial soap. Wear comfortable, loose fitting clothing. Children are encouraged to wear pajamas. - Jewelry must be removed prior to entering the operating room. Rings and piercings that are not removed may be cut off. - The hospital will not accept responsibility for valuables. - Please leave all valuables, including medications, at home the day of surgery. If you are going home after surgery, a licensed septic pump truck driver must drive you home. - NO public transportation without another adult. - We recommend that an adult stay with you for 24 hours following discharge. - We also recommend that you do not drive, make important decision, drink alcoholic beverages, or take any drugs that were not prescribed by your health care provider for at least 24 hours after your discharge time. For Pediatric surgeries, we recommend two adults accompany the child home (only one inside the building at this time). Follow any additional instructions given to you from your surgeon. Telephone instructions given to ____PT and asked if any additional questions and then verbalized understanding. Patient advised to call surgeon office or pre surgery nurse liaison [phone] if any additional questions.
--- NOTE | 2021-09-02 13:13 | PM.IMHP ---
H&P: HPI History of Present Illness Date/Time: 09/02/21 13:13 Eosinophilic cystitis and OAB Chief Complaint: Cystitis/OAB Review of Systems Review of Systems: All systems reviewed & are unremarkable except as noted in HPI and below [facility] Past Medical History Medical History COPD (chronic obstructive pulmonary disease) Hypertension CELI (obstructive sleep apnea) Tear of right supraspinatus tendon Family History Family History Other Family history of premature coronary heart disease Social History Social History Smoking packs per day: 1 Smoking cigarettes per day: 20.0 Years smoked: 40 Smoking pack-years: 40.00 Smoking status: Former smoker Tobacco type: cigarettes Second hand tobacco smoke exposure: No Smoking end date: 07/28/90 Alcohol intake: never Substance use: never Substance use type: does not use Additional living arrangements comments: PT LIVES WITH DAUGHTER Spiritual care concerns: No Meds Home Medications and Allergies Home Medications Medication Instructions Recorded Confirmed Type elderberry fruit 400 mg PO QAM 06/21/20 08/27/21 History turmeric 1,000 mg PO QAM 06/21/20 08/27/21 History clonidine 0.2 mg/24 hr weekly 1 patch TRANSDERM WEEKLY 90 Days 08/08/20 08/27/21 Rx transdermal patch #13 each polyethylene glycol 3350 17 gram 17 g PO DAILY #1 ea 11/07/20 08/27/21 Rx oral powder packet irbesartan 150 mg QAM 08/27/21 08/27/21 History isosorbide mononitrate 30 mg PO QAM 08/27/21 08/27/21 History Allergies Allergy/AdvReac Type Severity Reaction Status Date / Time azithromycin Allergy Severe HYPERTENSIO Verified 08/27/21 10:17 N levofloxacin Allergy Severe extremely Verified 08/27/21 10:17 high blood pressure which sent her to ER methylprednisolone Allergy Severe extremely Verified 08/27/21 10:17 high blood pressure which sends her to ER prednisone Allergy Severe HYPERTENSIO Verified 08/27/21 10:17 N atorvastatin Allergy Intermediate effected Verified 08/27/21 10:17 eye sight muscle joints amlodipine Allergy Mild cramps Verified 08/27/21 10:17 doxycycline Allergy Mild Rash Verified 08/27/21 10:17 nitrofurantoin Allergy Mild Cough Verified 08/27/21 10:17 pregabalin Allergy Mild Unknown-PT Verified 08/27/21 10:17 UNABLE TO RECALL Ahdcdqz-JFJ-ZfW Reductase Allergy Mild LEG CRAMPS Verified 08/27/21 10:17 Inhibitor [Kiehmle-Evq-Hcl Reductase Inhibitor] selenium sulfide AdvReac Mild rash Verified 08/27/21 10:17 Exam Narrative: NAD normal breathing A+O x3 Assessment and Plan Assessment and plan (1) Overactive bladder: Code(s): N32.81 - Overactive bladder Status: Acute Assessment and Plan: botox 200U (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
--- NOTE | 2021-09-07 07:14 | WPDHPUPDATE1 ---
History and Physical Update Update Date/Time: 09/07/21 07:14 History and Physical has been reviewed, including an updated exam of the patient. There are NO changes in the patient's condition. Risks, benefits, and alternatives have been discussed and questions answered. Patient agrees to proceed with procedure.
--- NOTE | 2021-09-07 09:20 | P.PNAN_ITS ---
Anes - Eval Pre Procedure Procedure: Operation Date: 09/07/21 11:15 Proposed Procedures p Cystoscopy, Bladder Biopsy, Steroid Injection, Botox Injection - Yon Jones MD Date/Time: 09/07/21 09:20 Surgeon: Robert Pre Op Diagnosis: eosinophilic cystititis, hunners ulcer, oa bladder Patient Data Age: 80 Gender: F Height: 1.71 m Weight: 85.9 kg Allergies Allergy/AdvReac Type Severity Reaction Status Date / Time azithromycin Allergy Severe HYPERTENSIO Verified 08/27/21 10:17 N levofloxacin Allergy Severe extremely Verified 08/27/21 10:17 high blood pressure which sent her to ER methylprednisolone Allergy Severe extremely Verified 08/27/21 10:17 high blood pressure which sends her to ER prednisone Allergy Severe HYPERTENSIO Verified 08/27/21 10:17 N atorvastatin Allergy Intermediate effected Verified 08/27/21 10:17 eye sight muscle joints amlodipine Allergy Mild cramps Verified 08/27/21 10:17 doxycycline Allergy Mild Rash Verified 08/27/21 10:17 nitrofurantoin Allergy Mild Cough Verified 08/27/21 10:17 pregabalin Allergy Mild Unknown-PT Verified 08/27/21 10:17 UNABLE TO RECALL Flavuxc-WHW-QxH Reductase Allergy Mild LEG CRAMPS Verified 08/27/21 10:17 Inhibitor [Jxkphwe-Nfh-Owy Reductase Inhibitor] selenium sulfide AdvReac Mild rash Verified 08/27/21 10:17 Home Medications Medication Instructions Recorded Confirmed Type elderberry fruit 400 mg PO QAM 06/21/20 08/27/21 History turmeric 1,000 mg PO QAM 06/21/20 08/27/21 History clonidine 0.2 mg/24 hr weekly 1 patch TRANSDERM WEEKLY 90 Days 08/08/20 08/27/21 Rx transdermal patch #13 each polyethylene glycol 3350 17 gram 17 g PO DAILY #1 ea 11/07/20 08/27/21 Rx oral powder packet irbesartan 150 mg QAM 08/27/21 08/27/21 History isosorbide mononitrate 30 mg PO QAM 08/27/21 08/27/21 History Patient hx anesthesia problems: none Family hx anesthesia problems: none Results Review: All pre-operative results and documents have been reviewed as part of the pre-operative evaluation. [facility] Past Medical History Medical History CHF (congestive heart failure) COPD (chronic obstructive pulmonary disease) Hypertension CELI (obstructive sleep apnea) Peripheral vascular disease Tear of right supraspinatus tendon Family History Family History Other Family history of premature coronary heart disease Social History Social History Smoking packs per day: 1 Smoking cigarettes per day: 20.0 Years smoked: 40 Smoking pack-years: 40.00 Smoking status: Former smoker Tobacco type: cigarettes Second hand tobacco smoke exposure: No Smoking end date: 07/28/90 Alcohol intake: never Substance use: never Substance use type: does not use Living arrangements: with family Additional living arrangements comments: PT LIVES WITH DAUGHTER Spiritual care concerns: No Exam Day of Procedure 09/07/21 09:
[2021-09-07] MEDS: LACTATED RINGERS 1,000 ML 30 ML IV CONT (10:20)
--- NOTE | 2021-09-07 10:25 | P.PNAN_ITS ---
Anes - Eval Final PreProcedure Day of Procedure 09/07/21 10:25 Patient weight: overweight Heart: regular rate and rhythm Lungs: clear to auscultation and normal air movement Airway: Mallampati scale class II Neurological: alert and oriented Last oral intake: >/= 8 hours ASA classification: IV Emergent: no Anesthetic plan: proceed Anesthesia type and monitoring: general GIVS and standard monitoring Other findings: Optimization Analyst removed COPD from history Results Review: All pre-operative results and documents have been reviewed as part of the pre-operative evaluation. Informed Consent: The patient's anesthetic plan and its attendant risks and benefits were discussed with the patient/family/POA. Questions were solicited and answers provided to the satisfaction of the patient/family/POA.
[2021-09-07 10:44] VITALS: BP 172/78; PULSE 51; RESP 20; TEMP 36.4; O2SAT 99
[2021-09-07] MEDS: ceFAZolin 2 GM/D5W 50 ML 2 GM/50 ML BAG IVPB (10:47)
[2021-09-07] MEDS: BOTULINUM TOXIN TYPE A (*SPLP) 100 UNITS VIAL 200 UNITS XX (11:01)
[2021-09-07] MEDS: BOTULINUM TOXIN TYPE A (*SPLP) 100 UNITS VIAL XX (11:03)
[2021-09-07] MEDS: TRIAMCINOLONE ACET INJ 40 MG/ML VIAL 200 MG XX (11:04)
[2021-09-07] MEDS: LIDOCAINE HCL 2% GEL UROJET 10 ML PKG MUCOUS MEM (11:05)
--- NOTE | 2021-09-07 11:15 | W.PM.PROC2 ---
Procedure Note - Detailed Date of Procedure 09/07/21 Pre-op Diagnosis eosinophilic cystititis, hunners ulcer, overactive bladder Post-op Diagnosis same Procedure Performed Cystoscopy with bladder biopsy and steroid injection. Injection of Botox 300 units Surgeon Yon Jones MD Anesthesia MAC Indications This is a woman Hunner's ulcerations as well as overactive bladder. She does self-catheterizations. We do Botox injection as well as injection of her Hunner's ulcer every 6 months. We used 300 Botox. We used 200 mg of Kenalog. She tolerated both very well the past Findings Hunner's ulcer on posterior wall. Open ureters consistent with reflux. Small capacity bladder Description of Procedure She has correctly identified. Informed consent obtained. From the operating room. She was given MAC anesthesia. She was placed in dorsal lithotomy position. She was given appropriate perioperative antibiotics. A time-out performed. I examined her bladder. The small capacity bladder. There was mild trabeculations. Ureters open consistent with reflux. There is an area of Hunner's ulceration the posterior wall. This was biopsied. I then injected Kenalog 200 mg total. It was 5 cc of 40 milligrams/mL. I injected into the ulcerated area. I then mixed 300 units of Botox and 30 cc preservative-free saline. I injected it throughout the bladder in the sub urothelial layer. There was minimal bleeding from the injection site. I fulgurated the site of the bladder biopsy. Her bladder was examined under low insufflation pressures. There is no active bleeding. Her bladder was drained. She was awakened transferred to PACU in stable condition. Estimated Blood Loss 2 Drains No Packing No Pathology yes (Bladder biopsy) Complications No immediate complications Condition stable Disposition PACU
[2021-09-07 11:20] VITALS: BP 179/111; PULSE 57; RESP 20; O2SAT 97
[2021-09-07 11:50] VITALS: BP 168/75; PULSE 60; RESP 20
[2021-09-07] MEDS: fentaNYL CITRATE INJ (*CRX) 100 MCG/2 ML VIAL 25 MCG IV PUSH ×3 (12:15→12:30)
[2021-09-07 12:20] VITALS: BP 157/74; PULSE 62; RESP 20
[2021-09-07 12:30] VITALS: BP 162/69; PULSE 58; RESP 20
--- NOTE | 2021-09-07 13:15 | SUR.PHASEII ---
PT STRAIGHT CATH HERSELF TWICE IN RECOVERY. DC WITHOUT ISSUE.
== END 2021-09-07 12:40 | disposition home or self-care (01) ==
PROVIDERS: Visit Provider Urology
PROC: 0TBB8ZX Excision of Bladder, Via Natural or Artificial Opening Endoscopic, Diagnostic (ICD-10-PCS; CPT 52204; principal; 2021-09-07 11:15)
DX: N30.10 Interstitial cystitis (chronic) without hematuria (principal); N30.80 Other cystitis without hematuria; N32.81 Overactive bladder; I11.0 Hypertensive heart disease with heart failure; I50.9 Heart failure, unspecified; J44.9 Chronic obstructive pulmonary disease, unspecified; G47.33 Obstructive sleep apnea (adult) (pediatric); I73.9 Peripheral vascular disease, unspecified; Z87.891 Personal history of nicotine dependence
CPT/HCPCS: 52204; 52287; 52283; 88305; A9270; J0585; J0690; J2704; J3010; J3301; J7120

== ENCOUNTER 2022-03-08 01:16 | Day surgery (SDC) | payer MEDICARE, BC, SELFPAY ==
[2022-02-25 14:15] VITALS: BMI 29.3
--- NOTE | 2022-02-25 14:20 | PC.NURSE ---
PRE-OP INSTRUCTIONS, PLEASE READ CAREFULLY Report to the Outpatient Waiting Room, entrance under the green pavilion located off [facility], at time _0600_ on date _03/08/22_. OR Time: _0730_. - You and your visitor will be asked a series of questions to screen for COVID 19 for your protection. - Only one visitor is allowed at this time. - The patient visitor is requested to leave or wait in car when not with patient. - A mask is required within the hospital. Patients may have clear liquids (water, carbonated beverages, clear teas, apple juice) until 3 hours prior to surgery (0430 AM) with a maximum of 20 ounces. - No food from midnight until time of surgery Take the following medications with a SIP of water the morning of surgery: __ISOSORBIDE, LEAVE ON CLONIDINE PATCH__ Medications to discontinue _ASPIRIN PER DR. SCHAEFFER INSTRUCTIONS_ Medications to discontinue PER ANESTHESIA - _PROBIOTIC 3 DAYS PRIOR TO SURGERY, Date to take last dose 03/04/22_ Please no make-up, nail malay, hairspray, perfume, deodorant, or body powder the day of surgery. No jewelry (including any body piercings) or valuables the day of surgery, leave them at home. Please take a shower or bath the night before, or the morning of, surgery with an antibacterial soap. Wear comfortable, loose fitting clothing. - Jewelry must be removed prior to entering the operating room. Rings and piercings that are not removed may be cut off. - The hospital will not accept responsibility for valuables. - Please leave all valuables, including medications, at home the day of surgery. If you are going home after surgery, a licensed airport driver must drive you home. - NO public transportation without another adult. - We recommend that an adult stay with you for 24 hours following discharge. - We also recommend that you do not drive, make important decision, drink alcoholic beverages, or take any drugs that were not prescribed by your health care provider for at least 24 hours after your discharge time. Follow any additional instructions given to you from your surgeon. If you or anyone in your household have experienced Covid symptoms in the past week, please notify your surgeon or the nurse liaison at the phone number below for possible testing. Telephone instructions given to __PT and asked if any additional questions and then verbalized understanding. Patient advised to call surgeon office or pre surgery nurse liaison [phone] if any additional questions.
--- NOTE | 2022-03-04 07:44 | PM.IMHP ---
H&P: HPI History of Present Illness Date/Time: 03/04/22 07:44 Chief Complaint: Overactive bladder, Hunner's ulcer Narrative: this is an 81-year-old woman with overactive bladder and Hunner's ulcerations. She gets Botox 300 units and cystoscopy with bladder biopsy and steroid injection twice yearly Review of Systems Review of Systems: All systems reviewed & are unremarkable except as noted in HPI and below PMFSH Past Medical History Medical History CHF (congestive heart failure) Hypertension CELI (obstructive sleep apnea) Peripheral vascular disease Tear of right supraspinatus tendon Family History Family History Other Family history of premature coronary heart disease Social History Social History Smoking packs per day: 1 Smoking cigarettes per day: 20.0 Years smoked: 40 Smoking pack-years: 40.00 Smoking status: Former smoker Tobacco type: cigarettes Second hand tobacco smoke exposure: No Smoking end date: 07/28/90 Additional smoking assessment comments: STATES QUITTING 1990 Alcohol intake: never Substance use: never Substance use type: does not use Living arrangements: with family Additional living arrangements comments: WITH DAUGHTER - KRISTYN Spiritual care concerns: No Meds Home Medications and Allergies Home Medications Medication Instructions Recorded Confirmed Type clonidine 0.2 mg/24 hr weekly 1 patch transdermal WEEKLY 90 days 08/08/20 02/25/22 Rx transdermal patch #13 ea irbesartan 150 mg tablet 150 mg [facility] 08/27/21 02/25/22 History isosorbide mononitrate 30 mg 30 mg PO [facility] 08/27/21 02/25/22 History tablet,extended release 24 hr Probiotic 1 tab-cap [facility] 02/25/22 02/25/22 History aspirin 81 mg tablet,delayed 81 mg PO [facility] 02/25/22 02/25/22 History release magnesium 4 gummy 02/25/22 02/25/22 History metoprolol succinate 25 mg 25 mg PO 02/25/22 02/25/22 History tablet,extended release 24 hr mirabegron 50 mg tablet,extended 50 mg PO 02/25/22 02/25/22 History release 24 hr (Myrbetriq) nitrofurantoin 100 mg BID 02/25/22 02/25/22 History monohydrate/macrocrystals 100 mg capsule rosuvastatin 5 mg tablet 5 mg WEEKLY 02/25/22 02/25/22 History Allergies Allergy/AdvReac Type Severity Reaction Status Date / Time azithromycin Allergy Severe HYPERTENSIO Verified 02/25/22 13:54 N levofloxacin Allergy Severe extremely Verified 02/25/22 13:54 high blood pressure which sent her to ER methylprednisolone Allergy Severe extremely Verified 02/25/22 13:54 high blood pressure which sends her to ER prednisone Allergy Severe HYPERTENSIO Verified 02/25/22 13:54 N atorvastatin Allergy Intermediate effected Verified 02/25/22 13:54 eye sight muscle joints amlodipine Allergy Mild cramps Verified 02/25/22 13:54 doxycycline Allergy Mild Rash Verified 02/25/22 13:54 nitrofurantoin Allergy Mild Cough Verified 02/25/22 13:54 pregabalin Allergy Mild Unknown-PT Verified 02/25/22 13:54 UNABLE TO RECALL Gznnhfi-CBZ-NtW Reductase Allergy Mild LEG CRAMPS Verified 02/25/22 13:54 Inhibitor [Ujrtovq-Rdz-Rng Reductase Inhibitor] selenium sulfide AdvReac Mild rash Verified 02/25/22 13:54 Exam Narrative: no acute distress normal breathing alert orient x3 Assessment and Plan Assessment and plan (1) Overactive bladder: Code(s): N32.81 - Overactive bladder Status: Acute Assessment and Plan: cystoscopy with Botox 300 units (2) 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
[2022-03-08 06:17] LABS: Appearance Urine Slightly Cloudy (Clear); Bilirubin Urine Negative (Negative); Blood Urine 2+ (Negative); Color Urine Yellow (Yellow); Glucose Urine UA Negative (Negative); Ketones Urine Negative (Negative); Leukocyte Esterase Ur 2+ LEU/UL (Negative); Nitrate Urine Negative (Negative); Protein Urine Trace mg/dL (Negative); Specific Grav Ur 1.025 (1.001-1.035); Urobilinogen Urine 0.2 mg/dL (<2.0)
[2022-03-08 06:23] LABS: Bacteria Urine Trace /hpf; RBC Urine 21-50 /hpf (0-2); Squamous Epithelial Cell Urine Rare /hpf (Few); WBC Urine >75 /hpf
[2022-03-08 06:28] VITALS: BP 174/63; PULSE 55; RESP 14; TEMP 36.4; O2SAT 100
[2022-03-08 06:30] LABS: Add Urine Microscopic? YES
[2022-03-08] MEDS: LACTATED RINGERS 1,000 ML 30 ML IV CONT (06:30)
--- NOTE | 2022-03-08 07:11 | WPDHPUPDATE1 ---
History and Physical Update Update Date/Time: 03/08/22 07:11 History and Physical has been reviewed, including an updated exam of the patient. There are NO changes in the patient's condition. Risks, benefits, and alternatives have been discussed and questions answered. Patient agrees to proceed with procedure.
--- NOTE | 2022-03-08 07:11 | WPDANESEPPF ---
Anes - Initial Pre Proc Eval Procedure: Operation Date: 03/08/22 07:30 Proposed Procedures p Cystoscopy, Bladder Biopsy, Botox Injection 300 Units, Steroid Injections - Yon Jones MD Date/Time: 03/08/22 07:11 Surgeon: Yon Jones MD Pre Op Diagnosis: hunters ulcers, overactive bladder Patient Data Age: 81 Gender: F Height: 1.71 m Weight: 86.36 kg Last Vital Signs Temp 36.4 C L 03/08/22 06:28 Pulse 55 L 03/08/22 06:28 Resp 14 03/08/22 06:28 BP 174/63 H 03/08/22 06:28 Pulse Ox 100 03/08/22 06:28 O2 Del Method Room Air 03/08/22 06:28 Allergies Allergy/AdvReac Type Severity Reaction Status Date / Time azithromycin Allergy Severe HYPERTENSIO Verified 03/08/22 07:04 N levofloxacin Allergy Severe extremely Verified 03/08/22 07:04 high blood pressure which sent her to ER methylprednisolone Allergy Severe extremely Verified 03/08/22 07:04 high blood pressure which sends her to ER prednisone Allergy Severe HYPERTENSIO Verified 03/08/22 07:04 N atorvastatin Allergy Intermediate effected Verified 03/08/22 07:04 eye sight muscle joints amlodipine Allergy Mild cramps Verified 03/08/22 07:04 doxycycline Allergy Mild Rash Verified 03/08/22 07:04 nitrofurantoin Allergy Mild Cough Verified 03/08/22 07:04 pregabalin Allergy Mild Unknown-PT Verified 03/08/22 07:04 UNABLE TO RECALL Vfgrnnk-THE-ErF Reductase Allergy Mild LEG CRAMPS Verified 03/08/22 07:04 Inhibitor [Ocqmzts-Plk-Odm Reductase Inhibitor] selenium sulfide AdvReac Mild rash Verified 03/08/22 07:04 Home Medications Medication Instructions Recorded Confirmed Type clonidine 0.2 mg/24 hr weekly 1 patch transdermal WEEKLY 90 days 08/08/20 02/25/22 Rx transdermal patch #13 ea irbesartan 150 mg tablet 150 mg QA 08/27/21 02/25/22 History isosorbide mononitrate 30 mg 30 mg PO QAM 08/27/21 03/08/22 History tablet,extended release 24 hr Probiotic 1 tab-cap QA 02/25/22 02/25/22 History aspirin 81 mg tablet,delayed 81 mg PO QAM 02/25/22 02/25/22 History release magnesium 4 gummy HS 02/25/22 02/25/22 History metoprolol succinate 25 mg 25 mg PO HS 02/25/22 02/25/22 History tablet,extended release 24 hr mirabegron 50 mg tablet,extended 50 mg PO HS 02/25/22 02/25/22 History release 24 hr (Myrbetriq) nitrofurantoin 100 mg BID 02/25/22 02/25/22 History monohydrate/macrocrystals 100 mg capsule rosuvastatin 5 mg tablet 5 mg WEEKLY 02/25/22 02/25/22 History Laboratory Tests 03/08/22 06:03 Urine Color Yellow (Yellow) Urine Appearance Slightly cloudy (Clear) Urine pH 6.0 (5.0-9.0) Ur Specific [place] 1.025 (1.001-1.035) Urine Protein Trace mg/dL mg/dL (Negative) Urine Glucose (UA) Negative mg/dL mg/dL (Negative) Urine Ketones Negative mg/dL mg/dL (Negative) Ur Blood (Man) 2+ H (Negative) Urine Nitrate Negative (Negative) Urine Bilirubin Negative (Negative) Urine Urobilinogen 0.2 mg/dL mg/dL (<2.0) Leukocyte Esterase Rfl 2+ RAIN/UL H RAIN/UL (Negative) Urine RBC 21-50 /hpf H /hpf (0-2) Urine WBC >75 /hpf H /hpf Ur Squamous Epith Cells Rare /hpf /hpf (Few) Urine Bacteria Trace /hpf /hpf Patient hx anesthesia problems: none Family hx anesthesia problems: none Results Review: All pre-operative results and documents have been reviewed as part of the pre-operative evaluation. [facility] Past Medical History Medical History CHF (congestive heart failure) Hypertension CELI (obstructive sleep apnea) Peripheral vascular disease Tear of right supraspinatus tendon Family History Family History Other Family history of premature coronary heart disease Social History Social History (Reviewed 03/08
[2022-03-08] MEDS: ceFAZolin 2 GM/D5W 50 ML 2 GM/50 ML BAG IVPB (07:22)
[2022-03-08] MEDS: LIDOCAINE HCL 2% GEL UROJET 10 ML PKG MUCOUS MEM (07:29)
[2022-03-08] MEDS: BOTULINUM TOXIN TYPE A (*SPLP) 100 UNITS VIAL 300 UNITS XX (07:34)
[2022-03-08] MEDS: TRIAMCINOLONE ACET INJ 40 MG/ML VIAL 200 MG XX (07:39)
[2022-03-08] MEDS: KETOROLAC 15 MG/ML VIAL (*BKC) IV PUSH (07:42)
--- NOTE | 2022-03-08 07:52 | P.OP_ITS ---
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 She does self catheterization. Twice a year we do steroid injection and Botox 300 units. Findings Small capacity bladder. Moderate trabeculations. Areas of Hunner's ulceration on the posterior wall. Description of Procedure She was correctly identified. Informed consent obtained. From the operating room. She was given general anesthesia. She was placed in dorsal lithotomy position. She was prepped and draped sterile fashion. Time out performed. Cystoscopy was performed. She has a small capacity bladder. Hunner's ulcerations on the posterior wall. Moderate trabeculations. No other bladder tumors. I biopsied the Hunner's ulcer on the posterior wall. I fulgurated the area. It was away from the ureteral orifice. I then injected my Botox. I mixed throughout units of Botox in 30 cc preserved free saline. I injected throughout the bladder in the sub urothelial muscular layer. There was minimal bleeding the injection sites. I then took 200 mg of Kenalog. The dose was 40 milligrams/milliliter. 5 mL total. I injected the ulcerated areas. There is minimal bleeding the injection sites. There is no significant bleeding under low insufflation pressures. Her bladder was drained. She was awakened transferred to PACU in stable condition. Implants None Estimated Blood Loss 1 Pathology Yes (Bladder biopsy) Complications No immediate complications Condition Stable Disposition PACU
[2022-03-08 07:58] VITALS: BP 104/47; PULSE 57; RESP 20; TEMP 36.6; O2SAT 100
[2022-03-08] MEDS: fentaNYL CITRATE INJ (*CRX) 100 MCG/2 ML VIAL 25 MCG IV PUSH ×4 (08:02→08:25)
[2022-03-08 08:12] VITALS: BP 162/70; PULSE 50; RESP 12; O2SAT 95
[2022-03-08 08:29] VITALS: BP 122/58; PULSE 54; RESP 10; O2SAT 95
[2022-03-08 08:36] VITALS: BP 179/81; PULSE 54; RESP 16
[2022-03-08] MEDS: oxyCODONE HCL (*CRX) 5 MG TAB IR PO (09:02)
[2022-03-08 09:06] VITALS: BP 169/56; PULSE 50; RESP 16
== END 2022-03-08 09:27 | disposition home or self-care (01) ==
PROVIDERS: Visit Provider Urology
PROC: 3E0K8GC Introduction of Other Therapeutic Substance into Genitourinary Tract, Via Natural or Artificial Opening Endoscopic (ICD-10-PCS; CPT 52287; principal; 2022-03-08 07:30)
DX: N30.10 Interstitial cystitis (chronic) without hematuria (principal); N32.81 Overactive bladder; I11.0 Hypertensive heart disease with heart failure; I50.9 Heart failure, unspecified; G47.33 Obstructive sleep apnea (adult) (pediatric); I49.3 Ventricular premature depolarization; Z87.891 Personal history of nicotine dependence; Z79.82 Long term (current) use of aspirin
CPT/HCPCS: 52204; 52283; 52287; 81001; 87077; 87086; 87186; 88305; A9270; J0585; J0690; J1885; J2704; J3010; J3301; J7120